=== PATIENT | female | born 1965 | race Caucasian/White ===

== ENCOUNTER 2021-09-14 10:24 | Emergency (ER) | payer BC ==
[~2021-09-14] VITALS: Ht 157.5 cm; Wt 92.7 kg
[~2021-09-14 10:24] MED LIST: CYCL-1 PO
[2021-09-14 10:34] VITALS: BP 158/81
[2021-09-14] MEDS ORDERED: ROBDML PO (13:51)
[2021-09-14] MEDS ORDERED: ALBU8HFA PO (14:07)
== END 2021-09-14 14:28 | disposition home or self-care (01) ==
LOC: ER 10:25
DX: U07.1 COVID-19 (principal)
CPT/HCPCS: 71045; 99283